=== PATIENT | male | born 1935 | race Asian ===

== ENCOUNTER 2017-02-13 16:52 | Inpatient (IN) | payer OTHER, MEDICAID ==
[~2017-02-13] VITALS: Ht 165.1 cm; Wt 68.5 kg
[~2017-02-13 16:52] MED LIST: BENAZEPRIL HYDR10 M1 PO; ECO81 PO; LEVOTHYROXINE0.1 M2 PO; LIPI20 PO; METOPROLOL SUCC50 M2 PO; NATEGLINIDE60 M1 PO; NEURONTIN400 MG PO; NOR10 PO
[2017-02-13 19:03] LABS: PLATELET COUNT 265 x10^3mcL (130-400); RED CELL DISTRIBUTION WIDTH 13.1 % (11.5-14.5)
[2017-02-13 19:11] LABS: CALCIUM 8.7 mg/dL (8.5-10.1); CARBON DIOXIDE 27.5 mmol/L (21-32); CHLORIDE SERUM 95 mmol/L (98-107); CREATININE SERUM 1.3 mg/dL (0.7-1.3); GLUCOSE SERUM 151 mg/dL (74-106); POTASSIUM SERUM 3.3 mmol/L (3.5-5.1); SODIUM SERUM 129 mmol/L (136-145)
[2017-02-13 19:12] LABS: microscopic required? YES; urine erythrocyte 1+ (NEGATIVE)
[2017-02-13 19:20] LABS: ALBUMIN 3.8 g/dL (3.4-5.0); ALKALINE PHOSPHATASE 102 U/L (46-116); ALT/SGPT 14 U/L (16-63); AST/SGOT 18 U/L (15-37); BILIRUBIN TOTAL 1.1 mg/dL (0.20-1.00); TOTAL PROTEIN, SERUM 7.9 g/dL (6.4-8.2)
[2017-02-13 19:28] LABS: CK-MB < 0.5 ng/mL (0-3.6); CREATINE KINASE 106 U/L (39-308)
[2017-02-13 19:36] LABS: FREE T4 1.31 ng/dL (0.76-1.46); FREE THYROXINE INDEX 3.6 ug/dL (1.4-4.5); T4(THYROXINE) 9.8 ug/dL (4.7-13.3)
[2017-02-13 19:50] LABS: BAND NEUTROPHIL 1 % (0-10); BASOPHIL 0 % (0-2); MONOCYTE 5 % (0-7); SEGMENTED NEUTROPHILS 88 % (37-75)
[2017-02-13 19:51] LABS: PLATELET MORPHOLOGY LARGE PLATELET SEEN; rbc morphology (normal/abnorm) NORMAL (NORMAL)
[2017-02-13 20:08] LABS: ERYTHROCYTE SED RATE 30 mm/hr (0-20)
[2017-02-13 20:11] LABS: T3 TOTAL 0.68 ng/mL
[2017-02-13 20:56] LABS: CHOLESTEROL/HDL RATIO 2.1; MAGNESIUM 1.9 mg/dL (1.8-2.4); PHOSPHOROUS 2.1 mg/dL (2.5-4.9)
[2017-02-13 21:08] VITALS: BP 142/78
[2017-02-13 21:21] VITALS: BP 142/78
[2017-02-14 05:08] VITALS: BP 121/67
[2017-02-14 06:12] LABS: PLATELET COUNT 254 x10^3mcL (130-400); RED CELL DISTRIBUTION WIDTH 13.3 % (11.5-14.5)
[2017-02-14 06:44] LABS: CALCIUM 8.5 mg/dL (8.5-10.1); CARBON DIOXIDE 26.1 mmol/L (21-32); CHLORIDE SERUM 102 mmol/L (98-107); CREATININE SERUM 1.1 mg/dL (0.7-1.3); GLUCOSE SERUM 144 mg/dL (74-106); MAGNESIUM 2.1 mg/dL (1.8-2.4); PHOSPHOROUS 1.6 mg/dL (2.5-4.9); POTASSIUM SERUM 4.1 mmol/L (3.5-5.1); SODIUM SERUM 137 mmol/L (136-145)
[2017-02-14 08:20] VITALS: BP 142/84
[2017-02-14 10:40] LABS: BAND NEUTROPHIL 2 % (0-10); BASOPHIL 0 % (0-2); MONOCYTE 6 % (0-7); SEGMENTED NEUTROPHILS 85 % (37-75)
[2017-02-14 10:41] LABS: PLATELET MORPHOLOGY PLATELETS NORMAL; rbc morphology (normal/abnorm) ABNORMAL (NORMAL)
[2017-02-14 11:45] VITALS: BP 137/77
[2017-02-14 16:30] VITALS: BP 136/72
[2017-02-14 20:34] VITALS: BP 166/87
[2017-02-15 05:21] VITALS: BP 124/72
[2017-02-15 06:24] LABS: BASOPHIL % 0.2 % (0-2); PLATELET COUNT 276 x10^3mcL (130-400); RED CELL DISTRIBUTION WIDTH 13.4 % (11.5-14.5)
[2017-02-15 06:40] LABS: CALCIUM 8.6 mg/dL (8.5-10.1); CARBON DIOXIDE 24.5 mmol/L (21-32); CHLORIDE SERUM 100 mmol/L (98-107); GLUCOSE SERUM 122 mg/dL (74-106); MAGNESIUM 1.7 mg/dL (1.8-2.4); PHOSPHOROUS 3.2 mg/dL (2.5-4.9); POTASSIUM SERUM 3.3 mmol/L (3.5-5.1); SODIUM SERUM 135 mmol/L (136-145)
[2017-02-15] MEDS ORDERED: KEFLEX500 M1 PO (09:11)
[2017-02-15] MEDS ORDERED: LAC PO (09:12)
[2017-02-15 10:16] VITALS: BP 124/72
[2017-02-15 10:27] VITALS: BP 138/72
== END 2017-02-15 11:35 | disposition home or self-care (01) | DRG 871 ==
LOC: ED 16:52 → DU 19:57
PROVIDERS: Family Medicine; Specialist; ADMIT Family Medicine
DX: A41.9 Sepsis, unspecified organism (principal); N17.0 Acute kidney failure with tubular necrosis; N39.0 Urinary tract infection, site not specified; D68.69 Other thrombophilia; E87.1 Hypo-osmolality and hyponatremia; E87.6 Hypokalemia; E83.42 Hypomagnesemia; R65.20 Severe sepsis without septic shock; E11.51 Type 2 diabetes mellitus with diabetic peripheral angiopathy without gangrene; E11.65 Type 2 diabetes mellitus with hyperglycemia; E03.9 Hypothyroidism, unspecified; E87.8 Other disorders of electrolyte and fluid balance, not elsewhere classified; R31.9 Hematuria, unspecified; Z68.25 Body mass index [BMI] 25.0-25.9, adult; Z86.73 Personal history of transient ischemic attack (TIA), and cerebral infarction without residual deficits; E05.80 Other thyrotoxicosis without thyrotoxic crisis or storm
CPT/HCPCS: 36600; 76770; 82962; 83880; 84439; J0696; J7030; Q0092